=== PATIENT | female | born 1995 | race Caucasian/White ===

== ENCOUNTER 2018-02-09 22:35 | Emergency (ER) | payer OTHER ==
[2018-02-09] MEDS: ALBUTEROL 0.5% (NEB) 2.5 MG/0.5 ML AMP INH (23:14)
[2018-02-09] MEDS: IPRATROPIUM (NEB) 0.5 MG/2.5 ML AMP NEB (23:14)
[2018-02-10] MEDS: DEXAMETHASONE 10 MG/ML 1 ML INJ IM (00:32)
[2018-02-10] MEDS: ALBUTEROL 0.5% (NEB) 2.5 MG/0.5 ML AMP INH (00:48)
== END 2018-02-10 02:00 | disposition home or self-care (01) ==
LOC: FTE 02-10 02:00
DX: J45.901 Unspecified asthma with (acute) exacerbation (principal)
CPT/HCPCS: 71045; 94644; 94645; 96372; 99284-25

== ENCOUNTER 2018-06-24 09:23 | Emergency (ER) | payer OTHER ==
[2018-06-24] MEDS: DEXAMETHASONE 10 MG/ML 1 ML INJ IM (09:33)
[2018-06-24] MEDS: ALBUTEROL 0.5% (NEB) 2.5 MG/0.5 ML AMP INH (09:49)
[2018-06-24] MEDS: IPRATROPIUM (NEB) 0.5 MG/2.5 ML AMP INH (09:49)
== END 2018-06-24 11:03 | disposition home or self-care (01) ==
LOC: FTE 09:23
DX: J45.31 Mild persistent asthma with (acute) exacerbation (principal)
CPT/HCPCS: 87880; 94644; 96372; 99284-25

== ENCOUNTER 2018-07-14 10:29 | Emergency (ER) | payer OTHER ==
[2018-07-14] MEDS: ALBUTEROL 0.083% (NEB) 2.5 MG/3 ML AMP HHN (10:49)
[2018-07-14] MEDS: IPRATROPIUM (NEB) 0.5 MG/2.5 ML AMP HHN (10:49)
[2018-07-14] MEDS: METHYLPREDNISOLONE 125 MG INJ IV (11:08)
== END 2018-07-14 12:18 | disposition home or self-care (01) ==
LOC: FTE 10:29
DX: J45.901 Unspecified asthma with (acute) exacerbation (principal); R06.02 Shortness of breath
CPT/HCPCS: 94644; 96374; 99284-25

== ENCOUNTER 2018-11-01 19:36 | Emergency (ER) | payer OTHER ==
[2018-11-01 20:31] LABS: URINE BLOOD (Dip) POC Trace-intact (NEGATIVE); URINE GLUCOSE (Dip) POC Negative (NEGATIVE); URINE KETONES (Dip) POC Negative (NEGATIVE); URINE LEUKOCYTE EST (Dip) POC Trace (NEGATIVE); URINE NITRITE (Dip) POC Negative (NEGATIVE); URINE TOTAL PROTEIN POC Negative (NEGATIVE)
== END 2018-11-01 20:52 | disposition home or self-care (01) ==
LOC: FTE 19:36
DX: N39.0 Urinary tract infection, site not specified (principal); J45.909 Unspecified asthma, uncomplicated
CPT/HCPCS: 81003; 81025; 99283